=== PATIENT | female | born 1985 | race Caucasian/White ===

== ENCOUNTER 2017-09-07 00:21 | Emergency (ER) | payer OTHER ==
[~2017-09-07] VITALS: Ht 157.5 cm; Wt 58.7 kg
[2017-09-07 00:22] VITALS: TEMP 36.7; Ht 157.5 cm; Wt 58.7 kg
[2017-09-07 00:33] VITALS: O2SAT 100
[2017-09-07] MEDS ORDERED: KETOROLAC TROMETHAMINE 30 MG/ML VIAL IV STA (00:40)
[2017-09-07] MEDS ORDERED: SODIUM CHLORIDE 0.9% 1000ML 1,000 ML IV ONE (00:45)
[2017-09-07 00:54] LABS: BASO % 0.3 %; BASO ABS # 0.03 K/uL (0-0.2); EOS % 2.5 %; EOS ABS # 0.25 K/uL (0-0.5); HEMATOCRIT 41.3 % (37-47); HEMOGLOBIN 13.6 g/dL (12.0-16.0); IG# 0.02 K/uL (0.00-0.02); LYMPH % 38.3 %; LYMPH ABS # 3.81 K/uL (1.2-3.4); MEAN CELL VOLUME 91.8 fL (80-100); MEAN CORPUSCULAR HEMOGLOBIN 30.2 pg (25-34); MEAN CORPUSCULAR HGB CONC 32.9 g/dl (32-36); MEAN PLATELET VOLUME 11.4 fL (7.4-10.4); MONO % 5.5 %; MONO ABS # 0.55 K/uL (0.11-0.59); NEUT % 53.2 %; NEUT ABS # 5.28 K/uL (1.4-6.5); PLATELET COUNT 298 K/uL (130-400); RED CELL DISTRIBUTION WIDTH CV 13.6 % (11.5-14.5); RED CELL DISTRIBUTION WIDTH SD 45.8 fL (36.4-46.3); WHITE BLOOD COUNT 9.94 K/uL (4.8-10.8)
[2017-09-07 01:14] LABS: ALBUMIN 3.9 gm/dl (3.4-5.0); CALCIUM 8.7 mg/dl (8.5-10.1); CREATININE 0.6 mg/dl (0.60-1.20); POTASSIUM 3.5 mmol/L (3.5-5.1)
[2017-09-07 01:25] LABS: TOTAL PROTEIN 7.5 gm/dl (6.4-8.2)
[2017-09-07 01:31] VITALS: BP 119/70
[2017-09-07 01:36] VITALS: PULSE 69; O2SAT 100
--- NOTE | 2017-09-07 05:47 | EMERGENCY ROOM VISIT NOTE ---
History First contact with patient: 00:26 Chief Complaint: CHEST PAIN Stated Complaint: CHEST PAIN Nursing Triage Summary: Pt reports left sided chest pain that started "3-4 days ago while sitting on chair". Pt reports pain is a "dull stabbing" and has been constant and unchanging for these 3-4 days. Pt states "I have gotten this pain since I was a child and it feels the same". Pain rated 9/10 and reports its worse with movement and "when I raise my arms above my head". Pt reports "I have never been to this hospital before, I usually go to [facility] for my chest pain, but they don't do anything for me anymore so I wanted to come here". History of Present Illness The patient is a 32 year old female who presents to the Emergency Room with complaints of left-sided chest pain for the past 3-4 days. Evidently the patient has had symptoms like this over the course of several years, with episodes that come and go. She states that her discomfort as a dull and stabbing nature that she rates a 9/10. She has not taken anything over-the- counter for her pain. The patient does not have lightheadedness, dizziness, shortness of breath, or abdominal pain. The patient evidently has been seen several times at [facility] with this complaint, and does not have a known expiration for her symptoms. She comes to this facility today because the pain is worse than normal. She does not have recent travel history. She is not on control. She considers himself otherwise usually healthy and dislikes taking medication. Review of Systems More than 10 systems were reviewed and otherwise negative with the exception of history of present illness. Past Medical/Surgical History No chronic medical disease Family History No pertinent family history Social History Smoking Status: Current Every Day Smoker Housing Status: lives with family Physical Exam Vital Signs Date Time Temp Pulse Resp B/P (MAP) Pulse Ox O2 Delivery O2 Flow Rate FiO2 09/07/17 01:36 69 14 100 09/07/17 01:31 119/70 09/07/17 01:06 63 17 100 09/07/17 01:01 124/74 09/07/17 00:51 78 18 100 09/07/17 00:33 100 Room Air 09/07/17 00:33 100 Room Air 09/07/17 00:32 140/90 09/07/17 00:22 36.7 76 18 136/84 100 Room Air Physical Exam VITALS: Vitals are noted on the nurse's note and reviewed by myself. Vital signs stable. GENERAL: Well-developed, well-nourished, white female, who is in no acute distress and resting comfortably. Patient is cooperative with the examination. HEAD: Normocephalic atraumatic. EARS: External ear normal. External auditory canals clear, tympanic membranes pearly hillman without erythema or effusion bilaterally. EYES: Pupils equal round and reactive to light and accommodation. Conjunctivae without injection, sclerae without icterus. Extraocular movements intact. NOSE: Patent, turbinates without inflammation or discharge. MOUTH: Mucous membranes moist. Tonsils are not enlarged. Pharynx without erythema, blood, or exudate. Uvula midline. Airway patent. NECK: Supple without nuchal rigidity. No lymphadenopathy. No thyromegaly. Cervical spine is nontender. HEART: Regular rate and rhythm without murmurs gallops or rubs. LUNGS: Clear to auscultation bilaterally without wheezes, rales or rhonchi. No retractions or accessory muscle use. ABDOMEN: Positive normal bowel sounds x 4. Soft, nontender, without masses or organomegaly. No guarding or rebound tenderness. Medical Decision & Procedures Laboratory Results 09/07/17 00:42 Red Blood Count 4.50, Mean Corpuscular Volume 91.8, Mean Corpuscular Hemoglobin 30.2, Mean Corpuscular Hemoglobin Concent 32.9, Mean Platelet Volume 11.4, Neutrophils (%) (Auto) 53.2, Lymphocytes (%) (Auto) 38.3, Monocytes (%) (Auto) 5.5, Eosinophils (%) (Auto) 2.5, Basophils (%) (Auto) 0.3, Neutrophils # (Auto) 5.28, Lymphocytes # (Auto) 3.81, Monocytes # (Auto) 0.55, Eosinophils # (Auto) 0.25, Basophils # (Auto) 0.03 09/07/17 00:42 Test 09/07/17 00:42 09/07/17 00:50 09/07/17 01:10 White Blood Count 9.94 K/uL (4.8-10.8) Red Blood Count 4.50 M/uL (4.2-5.4) Hemoglobin 13.6 g/dL (12.0-16.0) Hematocrit 41.3 % (37-47) Mean Corpuscular Volume 91.8 fL (80-100) Mean Corpuscular Hemoglobin 30.2 pg (25-34) Mean Corpuscular Hemoglobin Concent 32.9 g/dl (32-36) Platelet Count 298 K/uL (130-400) Mean Platelet Volume 11.4 fL (7.4-10.4) Neutrophils (%) (Auto) 53.2 % Lymphocytes (%) (Auto) 38.3 % Monocytes (%) (Auto) 5.5 % Eosinophils (%) (Auto) 2.5 % Basophils (%) (Auto) 0.3 % Neutrophils # (Auto) 5.28 K/uL (1.4-6.5) Lymphocytes # (Auto) 3.81 K/uL (1.2-3.4) Monocytes # (Auto) 0.55 K/uL (0.11-0.59) Eosinophils # (Auto) 0.25 K/uL (0-0.5) Basophils # (Auto) 0.03 K/uL (0-0.2) RDW Standard Deviation 45.8 fL (36.4-46.3) RDW Coefficient of Variation 13.6 % (11.5-14.5) Immature Granulocyte % (Auto) 0.2 % Immature Granulocyte # (Auto) 0.02 K/uL (0.00-0.02) Anion Gap 6.0 mmol/L (3-11) Est Creatinine Clear Calc Drug Dose 106.5 ml/min Estimated GFR () 139.8 Estimated GFR (Non- 120.6 BUN/Creatinine Ratio 17.1 (10-20) Calcium Level 8.7 mg/dl (8.5-10.1) Magnesium Level 2.1 mg/dl (1.8-2.4) Total Bilirubin 0.2 mg/dl (0.2-1) Aspartate Amino Transf (AST/SGOT) 7 U/L (15-37) Alanine Aminotransferase (ALT/SGPT) 14 U/L (12-78) Alkaline Phosphatase 73 U/L (45-117) Total Protein 7.5 gm/dl (6.4-8.2) Albumin 3.9 gm/dl (3.4-5.0) Globulin 3.6 gm/dl (2.5-4.0) Albumin/Globulin Ratio 1.1 (0.9-2) Lipase 106 U/L (73-393) Thyroid Stimulating Hormone (TSH) 2.870 uIu/ml (0.300-4.500) Bedside D-Dimer 163 ng/mlFEU (0-450) Bedside Troponin I < 0.030 ng/ml (0-0.045) Urine Color YELLOW Urine Appearance CLEAR (CLEAR) Urine pH 7.5 (4.5-7.5) Urine Specific [place] 1.007 (1.000-1.030) Urine Protein NEG (NEG) Urine Glucose (UA) NEG (NEG) Urine Ketones NEG (NEG) Urine Occult Blood NEG (NEG) Urine Nitrite NEG (NEG) Urine Bilirubin NEG (NEG) Urine Urobilinogen NEG (NEG) Urine Leukocyte Esterase NEG (NEG) Urine Test NEG (NEG) Urine Opiates Screen NEG (NEG) Urine Methadone, Qualitative NEG (NEG) Urine Barbiturates NEG (NEG) Urine Phencyclidine (PCP) Level NEG (NEG) Ur Amphetamine/Methamphetamine NEG (NEG) MDMA (Ecstasy) Screen NEG (NEG) Urine Benzodiazepines Screen NEG (NEG) Urine Cocaine Metabolite NEG (NEG) Urine Marijuana (THC) NEG (NEG) Medications Administered Medications (Trade) Dose Ordered Sig/Iona Route Start Time Stop Time Status Last Admin Dose Admin Sodium Chloride 1,000 ml @ 999 mls/hr Q1H1M ONCE IV 09/07/17 00:45 09/07/17 01:45 DC 09/07/17 00:53 999 MLS/HR Ketorolac Tromethamine (Toradol Inj) 30 mg NOW STAT IV 09/07/17 00:40 09/07/17 00:42 DC 09/07/17 00:53 30 MG ED Course Physical exam and history were performed. Nursing notes, EMR, and Medication List were personally reviewed. Patient appears to have left-sided chest pain for the past 3 or 4 days. She does not identify aggravating or alleviating factors. IV access was established and labs were obtained. EKG was performed and was normal sinus rhythm without ischemia or ectopy per my interpretation. The patient was hydrated with normal saline and given IV Toradol for comfort. She was placed on a residential monitor. The patient's blood work is as above and was reviewed. She does not have a significantly elevated white blood cell count, gross anemia, bandemia, or significant electrolyte imbalance. Lipase and transaminases are not diagnostic. Troponin and d-dimer 1 are both negative. The patient remained in normal sinus rhythm on the residential monitor. The patient remained in stable condition throughout ER stay. She did not have any worsening of her symptoms while under our care. Overall she and I had a lengthy discussion regarding options of care. She does appear well for discharge home. She has had these symptoms for several years. The patient will need to follow with her primary care physician this week for further care management. She was otherwise invited back to the ER with any new, worsening, or concerning symptoms. The chart was completed utilizing [employer] Speech Voice Recognition Software. Grammatical errors, random word insertions, pronoun errors, and incomplete sentences are an occasional consequence of this system due to software limitations, ambient noise, and hardware issues. Any formal questions or concerns about the content, text, or information contained within the body of this dictation should be directly addressed to the provider for clarification. . Medical Decision Differential diagnosis includes, but is not limited to: Myocardial infarction, dysrhythmia, pericarditis, pneumothorax, aortic aneurysm/dissection, DVT/PE, anxiety, GERD, PUD, electrolyte imbalance, thyroid disorder, pneumonia, bronchitis, pancreatitis, and others Impression Primary Impression: Non-cardiac chest pain Departure Information Dispostion Home / Self-Care Condition GOOD Forms Call Back Authorization, HOME CARE DOCUMENTATION FORM, Work Instructions, Return To Work: 1 day Specific Date: 08-08-17 IMPORTANT VISIT INFORMATION Patient Instructions My [facility] Additional Instructions You were seen and evaluated today on an emergency basis only. This is not a substitute for, or an effort to provide, complete comprehensive medical care. It is not possible to recognize and treat all injuries or illnesses in a single emergency department visit. For this reason it is recommended that you followup with your primary care physician for ongoing care and evaluation. For baseline pain relief you may alternate ibuprofen and acetaminophen every 4 hours for pain control. Take 600 mg ibuprofen (Advil) and then 4 hours later take 1000 mg acetaminophen (Tylenol). Do not take more than 3000 mg acetaminophen in a single day. You are welcome to return to the emergency department anytime with new, worsening, or concerning symptoms. Work Instructions Return To Work: 1 day Specific Date: 08-08-17
--- NOTE | 2017-09-07 08:38 | DIAGNOSTIC IMAGING REPORT ---
CHEST ONE VIEW PORTABLE HISTORY: left chest pain COMPARISON: None. FINDINGS: The lungs are clear. Cardiac silhouette is normal in size. No pleural effusions. No pneumothorax. IMPRESSION: No acute process. Electronically signed by: Reyes Jarvis M.D. 09/07/2017 7:14 AM Dictated Date/Time: 09/07/2017 7:13 AM
== END 2017-09-07 02:23 | disposition home or self-care (01) ==
LOC: C.EDB 00:22 → C.EDA 02:23
DX: R07.89 Other chest pain (principal); F17.200 Nicotine dependence, unspecified, uncomplicated